=== PATIENT | female | born 1970 | race Caucasian/White ===

== ENCOUNTER → 2016-07-03 | Outpatient (CLI) | payer BC, OTHER ==
--- NOTE | 2016-07-04 10:16 | MM ---
Reason for exam: screening (asymptomatic). Last mammogram was performed 1 year and 4 months ago. Physical Findings: A clinical breast exam by your physician is recommended on an annual basis and results should be correlated with mammographic findings. MG Screening Mammo w CAD Bilateral CC and MLO view(s) were taken. Prior study comparison: March 15, 2015, bilateral MG screening mammo w CAD. May 19, 2008, bilateral digital screening mammogram. There are scattered fibroglandular densities. Finding: There are typically benign calcifications. There is no discrete abnormality. No significant changes in finding since March 15, 2015 and May 19, 2008. ASSESSMENT: Benign, BI-RAD 2 RECOMMENDATION: Routine screening mammogram of both breasts in 1 year.
== END | disposition home or self-care (01) ==
LOC: RADMAMWWP 08:00
PROVIDERS: ATTEND Family Medicine
DX: Z12.31 Encounter for screening mammogram for malignant neoplasm of breast (principal)

== ENCOUNTER → 2016-09-19 | Outpatient (CLI) | payer BC, OTHER ==
--- NOTE | 2016-09-19 12:23 | CONS ---
DATE OF CONSULTATION: 09/19/2016 CONSULTATION/NEW PATIENT EVALUATION A 46-year-old lady has been evaluated in the sleep center for excessive daytime sleepiness. HISTORY OF PRESENT ILLNESS/SLEEP-WAKE EVALUATION: SLEEP SCHEDULE: Patient's usual sleep schedule on working days from around 2 a.m. until 10 a.m. and on weekends from around 11 to 12 midnight until 9 a.m. FALLING ASLEEP: No problem with falling asleep. 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 or at midnight. She has a TV set in bedroom. DURING SLEEP: Sleeps on the side position. According to her , she snores. Nobody did mention that she has episodes of stopped breathing during the sleep. She grinds her teeth and has positive symptoms of restless legs and sleeptalking. The patient has positive history of movements of her legs during the night, improved while she is on treatment with magnesium and Neurontin. DURING THE DAY/WAKE STATE: In the morning, she wakes up tired, falling asleep during the day. Newton Sleepiness Scale significantly increased to 12. PAST MEDICAL HISTORY: Positive for hypothyroidism, seasonal allergy, allergic to CATS, DUST, diabetes mellitus, hyperlipidemia, acid reflux, depression. PAST SURGICAL HISTORY: Tubal ligation. MEDICATIONS: Synthroid, Claritin, fenofibrate, Mobic, Neurontin, metformin, citalopram, simvastatin, ( ), magnesium supplement, calcium supplement with vitamin D3. SOCIAL HISTORY: Negative for smoking. Alcohol consumption occasional, rarely. REVIEW OF SYSTEMS: Excessive daytime sleepiness. Patient feels refreshed after naps. No vivid dreams during naps. No fevers. No double vision. No recent chest pain. No shortness of breath. No abdominal pain. No bleeding episodes. No blood in urine. No seizure episodes. FAMILY HISTORY: Hyperlipidemia, arthritis, cancer, diabetes, acid reflux, thyroid problems, restless legs. PHYSICAL EXAMINATION: GENERAL: A pleasant 46-year-old lady without distress. VITAL SIGNS: BP 150/85, HR 84, RR 16. Height 5 feet and 7 inches. Weight 299. BMI 46.8. Neck 16-1/2 inches in circumference. Temp is 98.3. Oxygen saturation at room air 97%. HEENT: PERRLA, EOMI. Oropharynx low position of soft palate. NECK: Supple. No JVD. Thyroid is not palpable. LUNGS: Clear to percussion and to auscultation. Good air exchange. No wheezing or rhonchi. HEART: S1, S2 regular. No murmurs, gallops or rubs. ABDOMEN: Obese. EXTREMITIES: No clubbing or cyanosis. [employer]: Awake, alert, and oriented x3. Cranial nerves 2 to 7 intact. There is no fasciculation or atrophy noted. No focal deficits observed. IMPRESSION: 1. Snoring, low position of soft palate, obesity, sleepiness, obstructive sleep apnea/hypopnea syndrome. 2. Positive history of leg movements during sleep, possible PLMS. 3. Newton Sleepiness Scale increased to 12. If sleep study will be negative for obstructive sleep apnea, differential diagnosis should include hypersomnia. 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 5. Hypertension in the office today. 6. Hypothyroidism. 7. Obesity, body mass index of 46.8. 8. Seasonal allergy. 9. Allergic to CATS and DUST. 10. Diabetes mellitus. 11. Hyperlipidemia. 12. Acid reflux. 13. Status post tubal radiation. PLAN: 1. Polysomnography for evaluation of patient's breathing during sleep. 2. CPAP/BiPAP titration if sleep study confirms obstructive sleep apnea-hypopnea syndrome. 3. Preferable position during sleep on the side. 4. No driving if patient feels any sleepiness. Patient is aware of civil and criminal liability for unsafe driving. 5. I will see patient for follow-up visit to explain results of the testing and following plan. 6. If sleep study revealed negative for obstructive sleep apnea, we will proceed with multiple sleep latency test. Sincerely, Nathaniel Novak MD, PhD, FAASM. Diplomat of [place] [employer], Sleep Medicine Board by [place] [employer] [place] [employer] Animal Facility Supervisor of [facility] [place]
== END ==
LOC: SLEEP 11:18
PROVIDERS: ATTEND Internal Medicine
DX: G47.33 Obstructive sleep apnea (adult) (pediatric) (principal); I10 Essential (primary) hypertension; E03.9 Hypothyroidism, unspecified; E66.9 Obesity, unspecified; J30.2 Other seasonal allergic rhinitis; E11.9 Type 2 diabetes mellitus without complications; K21.9 Gastro-esophageal reflux disease without esophagitis; Z79.1 Long term (current) use of non-steroidal anti-inflammatories (NSAID); Z79.899 Other long term (current) drug therapy; Z68.42 Body mass index [BMI] 45.0-49.9, adult
CPT/HCPCS: 99211

== ENCOUNTER → 2017-01-29 | Outpatient (CLI) | payer BC, OTHER ==
--- NOTE | 2017-01-29 15:29 | XR ---
EXAMINATION TYPE: XR knee complete RT DATE OF EXAM: 01/29/2017 CLINICAL HISTORY: Right-sided knee pain TECHNIQUE: Three views of the right knee are obtained. COMPARISON: None. FINDINGS: There is no acute fracture/dislocation evident in right knee. Incidental fabella is noted. Marginal osteophytes project from the bilateral femoral condyles and superior patellar pole. There i s medial joint space narrowing, mild in degree with tibial plateaus sclerosis. The overlying soft tis nelly appears unremarkable. Small suprapatellar joint effusion is seen. IMPRESSION: There is no acute fracture or dislocation in the right knee.
== END | disposition home or self-care (01) ==
LOC: RADXRMAIN 15:05
PROVIDERS: ATTEND Family Medicine
DX: M25.561 Pain in right knee (principal)

== ENCOUNTER 2018-04-01 07:20 | Day surgery (SDC) | payer BC ==
[2018-03-30 15:59] VITALS: BMI 45.9
--- NOTE | 2018-03-31 22:39 | P.GSHP ---
History of Present Illness H&P Date: 04/01/18 CHIEF COMPLAINT: Colon screen HISTORY OF PRESENT ILLNESS: The patient is a 47-year-old female who presents for colon screen. Lower endoscopy was offered for further evaluation and management. PAST MEDICAL HISTORY: Please see list. PAST SURGICAL HISTORY: Please see list. MEDICATIONS: Please see list. ALLERGIES: Please see list. SOCIAL HISTORY: No illicit drug use FAMILY HISTORY: No reports of Crohn disease or ulcerative colitis. REVIEW OF ORGAN SYSTEMS: CONSTITUTIONAL: No reports of fevers or chills. PHYSICAL EXAM: VITAL SIGNS: Stable GENERAL: Well-developed pleasant in no acute distress. HEENT: No scleral icterus. Extraocular movements grossly intact. Moist buccal mucosa. NECK: Supple without lymphadenopathy. CHEST: Unlabored respirations. Equal bilateral excursions. CARDIOVASCULAR: Regular rate and rhythm. Distal 2+ pulses. ABDOMEN: Soft, nontender, nondistended. MUSCULOSKELETAL: No clubbing, cyanosis, or edema. ASSESSMENT: 1. Colon screen. PLAN: 1. Recommend proceeding with a lower endoscopy Past Medical History Past Medical History: Diabetes Mellitus, GERD/Reflux, Hyperlipidemia, Hypertension, Thyroid Disorder Additional Past Medical History / Comment(s): FREQUENT CONSTIPATION, RESTLESS LEG, SEASONAL ALLERGIES, History of Any Multi-Drug Resistant Organisms: None Reported Past Surgical History: Tubal Ligation Past Anesthesia/Blood Transfusion Reactions: No Reported Reaction Smoking Status: Never smoker - Past Family History Mother Family Medical History: No Reported History Medications and Allergies Home Medications Medication Instructions Recorded Confirmed Type Calcium Carbonate/Vitamin D3 1 each PO DAILY 02/13/16 03/30/18 History [Calcium 600-Vit D3 200 Tablet] Gabapentin [Neurontin] 600 mg PO TID 02/13/16 03/30/18 History Levothyroxine Sodium [Synthroid] 25 mcg PO DAILY 02/13/16 03/30/18 History Multivitamins, Thera [Multivitamin] 1 tab PO DAILY 02/13/16 03/30/18 History Simvastatin [Zocor] 40 mg PO HS 02/13/16 03/30/18 History metFORMIN HCL 1,000 mg PO DAILY 02/13/16 03/30/18 History Citalopram Hydrobromide 10 mg PO DAILY 03/30/18 03/30/18 History [Citalopram HBr] Fenofibrate 160 mg PO DAILY 03/30/18 03/30/18 History L.acidoph,Paracasei, B.lactis 1 each PO DAILY 03/30/18 03/30/18 History [Probiotic] Loratadine 10 mg PO DAILY 03/30/18 03/30/18 History Losartan [Cozaar] 50 mg PO DAILY 03/30/18 03/30/18 History Magnesium Oxide [Mag-Ox] 400 mg PO DAILY 03/30/18 03/30/18 History Meloxicam 15 mg PO DAILY 03/30/18 03/30/18 History Ranitidine HCl [Zantac] 150 mg PO DAILY 03/30/18 03/30/18 History Allergies Allergy/AdvReac Type Severity Reaction Status Date / Time codeine AdvReac Nausea Verified 03/30/18 15:52 hydrocodone bitartrate AdvReac Nausea Verified 03/30/18 15:52 [From Vicodin] lisinopril AdvReac Cough Verified 03/30/18 15:52 tramadol HCl [From Ultram] AdvReac Nausea Verified 03/30/18 15:52
[~2018-04-01 07:20] MED LIST: LACTATED RINGERS 1,000 ML IV SCH
[2018-04-01] MEDS ORDERED: LACTATED RINGERS 1,000 ML IV ONE (07:37)
[2018-04-01 07:53] VITALS: TEMP 98.3
[2018-04-01 07:57] LABS: Glucose,Whole Blood 111 mg/dL (75-99)
[2018-04-01] MEDS ORDERED: LIDOCAINE 1% INJ 10MG/ML (20 ML MDV) ONE (08:02)
[2018-04-01] MEDS ORDERED: PROPOFOL 10 MG/ML 20 ML VIAL IV ONE (08:02)
--- NOTE | 2018-04-01 08:26 | P.PCN ---
Date of Procedure: 04/01/18 Description of Procedure: PREOPERATIVE DIAGNOSIS: Colonoscopy screening Chronic constipation POSTOPERATIVE DIAGNOSIS: Colonoscopy screeningred. OPERATION: Colonoscopy to the ileocecal valve and appendiceal orifice. SURGEON: Cortney Vieira MD. ANESTHESIA: MAC. INDICATIONS: The patient is a 47-year-old female who presents for colonoscopy screening and also reports chronic constipation. Benefits and risks were described and informed consent was obtained. DESCRIPTION OF PROCEDURE: The patient had undergone Gatorade, MiraLAX and Dulcolax prep. She had been brought into the operating room and laid in the left lateral decubitus position. After adequate intravenous sedation, the rectum was examined with 2% lidocaine jelly. No external hemorrhoids were encountered. The rectal tone was within normal limits. No lesions were palpated in the rectal vault. An Olympus colonoscope was advanced until the ileocecal valve and appendiceal orifice were clearly viewed. The prep was good with visualization of the mucosal folds. The scope was removed with visualization of each mucosal fold. No scattered diverticulosis was encountered. No colonic polyps were found. No evidence of focal colitis was found. A highly redundant sigmoid colon was identified requiring abdominal wall pressure. Retroflexion of the scope demonstrated no internal hemorrhoids without active bleeding or inflammation. The colon was desufflated. The patient had tolerated the procedure well. Withdrawal time was over 6 minutes. FINDINGS: No internal hemorrhoids, grade 1 No external prolapsed hemorrhoids. No arteriovenous malformations. No adenomatous polyps. No focal colitis. No sigmoid diverticulosis A highly redundant sigmoid colon was identified requiring abdominal wall pressure. RECOMMENDATIONS: Lower endoscopy in 10 years per screening guidelines, 2027 Plan - Discharge Summary New Discharge Prescriptions: No Action Multivitamins, Thera [Multivitamin] 1 tab PO DAILY Gabapentin [Neurontin] 600 mg PO TID Calcium Carbonate/Vitamin D3 [Calcium 600-Vit D3 200 Tablet] 1 each PO DAILY metFORMIN HCL 1,000 mg PO DAILY Simvastatin [Zocor] 40 mg PO HS Levothyroxine Sodium [Synthroid] 25 mcg PO DAILY Magnesium Oxide [Mag-Ox] 400 mg PO DAILY Losartan [Cozaar] 50 mg PO DAILY Fenofibrate 160 mg PO DAILY Ranitidine HCl [Zantac] 150 mg PO DAILY Meloxicam 15 mg PO DAILY Loratadine 10 mg PO DAILY L.acidoph,Paracasei, B.lactis [Probiotic] 1 each PO DAILY Citalopram Hydrobromide [Citalopram HBr] 10 mg PO DAILY Discharge Medication List Calcium Carbonate/Vitamin D3 [Calcium 600-Vit D3 200 Tablet] 1 each PO DAILY [History] Gabapentin [Neurontin] 600 mg PO TID 02/13/16 [History] Levothyroxine Sodium [Synthroid] 25 mcg PO DAILY 02/13/16 [History] Multivitamins, Thera [Multivitamin] 1 tab PO DAILY 02/13/16 [History] Simvastatin [Zocor] 40 mg PO HS 02/13/16 [History] metFORMIN HCL 1,000 mg PO DAILY 02/13/16 [History] Citalopram Hydrobromide [Citalopram HBr] 10 mg PO DAILY 03/30/18 [History] Fenofibrate 160 mg PO DAILY 03/30/18 [History] L.acidoph,Paracasei, B.lactis [Probiotic] 1 each PO DAILY 03/30/18 [History] Loratadine 10 mg PO DAILY 03/30/18 [History] Losartan [Cozaar] 50 mg PO DAILY 03/30/18 [History] Magnesium Oxide [Mag-Ox] 400 mg PO DAILY 03/30/18 [History] Meloxicam 15 mg PO DAILY 03/30/18 [History] Ranitidine HCl [Zantac] 150 mg PO DAILY 03/30/18 [History]
[2018-04-01 08:32] VITALS: RESP 16
[2018-04-01 08:47] VITALS: BP 119/78; PULSE 72
== END 2018-04-01 09:10 | disposition home or self-care (01) ==
LOC: ORWHC2ENDO 07:20
PROVIDERS: ATTEND Surgery Plastic and Reconstructive Surgery
DX: K59.09 Other constipation (principal); Q43.8 Other specified congenital malformations of intestine; E11.9 Type 2 diabetes mellitus without complications; K21.9 Gastro-esophageal reflux disease without esophagitis; E78.5 Hyperlipidemia, unspecified; I10 Essential (primary) hypertension; E07.9 Disorder of thyroid, unspecified; G25.81 Restless legs syndrome; J30.2 Other seasonal allergic rhinitis; Z79.84 Long term (current) use of oral hypoglycemic drugs; Z79.890 Hormone replacement therapy; Z79.1 Long term (current) use of non-steroidal anti-inflammatories (NSAID); Z79.899 Other long term (current) drug therapy; Z88.5 Allergy status to narcotic agent; Z88.8 Allergy status to other drugs, medicaments and biological substances; Z98.51 Tubal ligation status
CPT/HCPCS: 81025; 45378; J2001; J2704

== ENCOUNTER → 2018-11-13 | Outpatient (CLI) | payer BC ==
--- NOTE | 2018-11-13 14:51 | XR ---
Right foot HISTORY: Right foot pain 3 views the right foot Bone mineralization, joint spaces and alignment are maintained. No fracture or dislocation. There is a plantar calcaneus spur. There is ossific density present at the level of the Achilles tendon near t he insertion. Achilles tendon is thickened. Some spurring present at the tibiotalar joint. IMPRESSION: There may be calcific tendinitis. Difficult to exclude partial tear of the Achilles tendo n, consider MRI of the ankle as indicated.
== END | disposition home or self-care (01) ==
LOC: RADXRMAIN 12:35
PROVIDERS: ATTEND Family Medicine
DX: M79.671 Pain in right foot (principal)

== ENCOUNTER → 2019-04-30 | Outpatient (CLI) | payer BC ==
--- NOTE | 2019-05-03 08:35 | MM ---
Reason for exam: screening (asymptomatic). Last mammogram was performed 2 years and 10 months ago. History: Family history of breast cancer in paternal aunt at age 67. Physical Findings: A clinical breast exam by your physician is recommended on an annual basis and results should be correlated with mammographic findings. MG Screening Mammo w CAD Bilateral CC and MLO view(s) were taken. Prior study comparison: July 03, 2016, bilateral MG screening mammo w CAD. March 15, 2015, bilateral MG screening mammo w CAD. There are scattered fibroglandular densities. Benign appearing bilateral calcifications. No suspicious abnormality. No significant changes when compared with prior studies. ASSESSMENT: Benign, BI-RAD 2 RECOMMENDATION: Routine screening mammogram of both breasts in 1 year.
== END | disposition home or self-care (01) ==
LOC: RADMAMWWP 10:20
PROVIDERS: ATTEND Family Medicine
DX: Z12.31 Encounter for screening mammogram for malignant neoplasm of breast (principal)
CPT/HCPCS: 77067

== ENCOUNTER → 2021-01-23 | Outpatient (CLI) | payer BC ==
--- NOTE | 2021-01-23 15:27 | US ---
EXAMINATION TYPE: US pelvic complete DATE OF EXAM: 01/23/2021 COMPARISON: NONE CLINICAL HISTORY: N92.1 Excessive Frequent Menstration. Irregular heavy periods x couple months, gr avida 2, para 2, history of tubal ligation. TECHNIQUE: . Transabdominal sonographic images of the pelvis were acquired. Date of LMP: 01/15/2021 EXAM MEASUREMENTS: Uterus: 9.5 x 4.1 x 4.5 cm Endometrial Stripe: 0.8 cm Right Ovary: 2.7 x 1.4 x 2.3 cm Left Ovary: 2.3 x 1.6 x 2.2 cm 1. Uterus: anteverted, heterogeneous 2. Endometrium: wnl 3. Right Ovary: wnl 4. Left Ovary: wnl 5. Bilateral Adnexa: wnl 6. Posterior cul-de-sac: wnl IMPRESSION: No significant abnormality appreciated.
== END | disposition home or self-care (01) ==
LOC: RADUSWWP 14:55
PROVIDERS: ATTEND Family Medicine
DX: N92.1 Excessive and frequent menstruation with irregular cycle (principal)
CPT/HCPCS: 76856

== ENCOUNTER → 2021-01-30 | Outpatient (CLI) | payer BC ==
--- NOTE | 2021-02-16 09:27 | P.CEMON ---
This is a report on the 14 day event monitor. Baseline rhythm is sinus with sinus tachycardia. The heart rate is variable between 94-130. Patient remained in a sinus tachycardia without any arrhythmias. No APCs, PVCs, SVT or V. tach noted. Patient complained of of heart racing on medication and also nausea vomiting and chest pain on few occasions. There is inconsistent correlation between symptoms and that heart rhythm. No bradyarrhythmias noted. Final impression: #1. Sinus rhythm to sinus tachycardia #2. No supraventricular or ventricular arrhythmias. #3. No bradyarrhythmias. #4. Patient complained of fast heartbeat, nausea, vomiting, chest pain, with inconsistent correlation with heart rates.
== END | disposition home or self-care (01) ==
LOC: RADECHMAIN 11:57
PROVIDERS: ATTEND Family Medicine
DX: R00.0 Tachycardia, unspecified (principal)
CPT/HCPCS: 93270

== ENCOUNTER → 2021-02-27 | Outpatient (CLI) | payer BC ==
--- NOTE | 2021-02-28 11:58 | MM ---
Reason for exam: screening (asymptomatic). Last mammogram was performed 1 year and 10 months ago. History: Family history of breast cancer in paternal aunt at age 67. Physical Findings: A clinical breast exam by your physician is recommended on an annual basis and results should be correlated with mammographic findings. MG Screening Mammo w CAD Bilateral CC, MLO, and CV view(s) were taken. Prior study comparison: April 30, 2019, bilateral MG screening mammo w CAD. July 03, 2016, bilateral MG screening mammo w CAD. The breast tissue is almost entirely fat. Stable benign calcifications. No significant changes when compared with prior studies. ASSESSMENT: Benign, BI-RAD 2 RECOMMENDATION: Routine screening mammogram of both breasts in 1 year.
== END | disposition home or self-care (01) ==
LOC: RADMAMWWP 10:50
PROVIDERS: ATTEND Family Medicine
DX: Z12.31 Encounter for screening mammogram for malignant neoplasm of breast (principal)
CPT/HCPCS: 77067

== ENCOUNTER 2021-07-08 00:11 | Emergency (ER) | payer OTHER, BC ==
[2021-07-08 00:56] VITALS: BP 113/71; PULSE 96; RESP 18; TEMP 97.4
[2021-07-08] MEDS ORDERED: KETOROLAC 15 MG/ML 1 ML VIAL IM STA (01:22)
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
== END 2021-07-08 02:54 | disposition home or self-care (01) ==
LOC: EC 00:11
DX: M54.59 Other low back pain (principal); I10 Essential (primary) hypertension; E11.9 Type 2 diabetes mellitus without complications; K21.9 Gastro-esophageal reflux disease without esophagitis; Z88.5 Allergy status to narcotic agent; Z79.83 Long term (current) use of bisphosphonates; Z79.82 Long term (current) use of aspirin; V99.XXXA Unspecified transport accident, initial encounter; Z88.8 Allergy status to other drugs, medicaments and biological substances; Z88.6 Allergy status to analgesic agent
CPT/HCPCS: 72100; 99284; 96372; J1885

== ENCOUNTER 2021-12-22 09:15 | Emergency (ER) | payer BC, OTHER ==
[2021-12-22 09:34] VITALS: BP 117/63; PULSE 96; RESP 16; TEMP 98.5
[2021-12-22] MEDS ORDERED: LIDOCAINE 1%-EPI 1:100,000 20 ML VIAL SQ STA (09:59)
--- NOTE | 2021-12-22 10:04 | ED ---
General Adult HPI - General Chief complaint: Skin/Abscess/Foreign Body Stated complaint: Sore/Femle Time Seen by Provider: 12/22/21 09:44 Source: patient, RN notes reviewed Mode of arrival: ambulatory Limitations: no limitations - History of Present Illness Initial comments: 51-year-old female with a past medical history of hyperlipidemia, hypertension, diabetes mellitus, GERD presents to the emergency room for abscess. Patient reports for the past couple days she has had a left buttock abscess. States that she gets these relatively frequently and her doctor gives her antibiotics. They usually spontaneously drained however this one is not. States it is painful to touch. Patient denies fevers or chills.Patient has no other complaints at this time including shortness of breath, chest pain, abdominal pain, nausea or vomiting, headache, or visual changes. - Related Data Home Medications Medication Instructions Recorded Confirmed Calcium Carbonate/Vitamin D3 1 each PO DAILY 02/13/16 04/01/18 [Calcium 600-Vit D3 200 Tablet] Gabapentin [Neurontin] 600 mg PO TID 02/13/16 04/01/18 Levothyroxine Sodium [Synthroid] 25 mcg PO DAILY 02/13/16 04/01/18 Multivitamins, Thera [Multivitamin] 1 tab PO DAILY 02/13/16 03/30/18 Simvastatin [Zocor] 40 mg PO HS 02/13/16 04/01/18 metFORMIN HCL [Glucophage] 1,000 mg PO DAILY 02/13/16 04/01/18 Citalopram Hydrobromide 10 mg PO DAILY 03/30/18 04/01/18 [Citalopram HBr] Fenofibrate 160 mg PO DAILY 03/30/18 04/01/18 L.acidoph,Paracasei, B.lactis 1 each PO DAILY 03/30/18 04/01/18 [Probiotic] Loratadine 10 mg PO DAILY 03/30/18 04/01/18 Losartan [Cozaar] 50 mg PO DAILY 03/30/18 04/01/18 Magnesium Oxide [Mag-Ox] 400 mg PO DAILY 03/30/18 04/01/18 Meloxicam 15 mg PO DAILY 03/30/18 04/01/18 Ranitidine HCl [Zantac] 150 mg PO DAILY 03/30/18 04/01/18 Previous Rx's Medication Instructions Recorded Cyclobenzaprine HCl 10 mg PO TID 7 Days #21 tab 07/08/21 predniSONE 50 mg PO DAILY #5 tab 07/08/21 Sulfamethox-Tmp 800-160Mg [Bactrim 2 tab PO Q12HR #40 tab 12/22/21 DS 800-160 mg] Allergies Allergy/AdvReac Type Severity Reaction Status Date / Time codeine AdvReac Nausea Verified 12/22/21 09:34 hydrocodone bitartrate AdvReac Nausea Verified 12/22/21 09:34 [From Vicodin] lisinopril AdvReac Cough Verified 12/22/21 09:34 tramadol HCl [From Ultram] AdvReac Nausea Verified 12/22/21 09:34 Review of Systems ROS Statement: Those systems with pertinent positive or pertinent negative responses have been documented in the HPI. ROS Other: All systems not noted in ROS Statement are negative. Past Medical History Past Medical History: Diabetes Mellitus, GERD/Reflux, Hyperlipidemia, Hypertension, Thyroid Disorder Additional Past Medical History / Comment(s): FREQUENT CONSTIPATION, RESTLESS LEG, SEASONAL ALLERGIES, History of Any Multi-Drug Resistant Organisms: MRSA Past Surgical History: Tubal Ligation Past Anesthesia/Blood Transfusion Reactions: No Reported Reaction Past Psychological History: Depression Smoking Status: Former smoker Past Alcohol Use History: Rare Past Drug Use History: None Reported - Past Family History Mother Family Medical History: No Reported History General Exam Limitations: no limitations General appearance: alert, in no apparent distress Head exam: Present: atraumatic Eye exam: Present: normal appearance, PERRL, EOMI. Absent: scleral icterus, conjunctival injection ENT exam: Present: normal exam, mucous membranes moist Neck exam: Present: normal inspection, full ROM. Absent: tenderness Respiratory exam: Present: normal lung sounds bilaterally. Absent: respiratory distress, wheezes Cardiovascular Exam: Present: regular rate, normal rhythm, normal heart sounds GI/Abdominal exam: Present: soft, normal bowel sounds. Absent: distended, tenderness Extremities exam: Present: other (2 cm x 2 cm area of induration noted in the left mid to low central buttock area. no erythema or edema in the perineum) Course Vital Signs 12/22/21 09:31 Temperature 98.5 F Pulse Rate 96 Respiratory 16 Rate Blood Pressure 117/63 O2 Sat by Pulse 97 Oximetry Procedures - Incision & Drainage Consent Obtained: verbal consent Indication: abscess Site: buttock Size (cm): 2 Anesthetic Used: lidocaine 1%, with epi Amount (mLs): 2 I&D Cleaning Method: Alcohol Wipe Sterile Field Used?: Yes Scalpel Used: #11 I&D Drainage Obtained: Blood Patient Tolerated Procedure: well, no complications Medical Decision Making - Medical Decision Making Incision and drainage performed 2 abscess of the left buttock. There is no evidence of extending cellulitis or abscess in the perineum. Abscess is small and localized to the central left buttock. Incision and drainage was performed however no purulent material expelled as this is a rather indurated area. Patient started on Bactrim. She usually gets 2 tabs of 800 twice daily for 10 days from her doctor which we will prescribe. She will follow-up with her doctor. She will return here for any worsening symptoms Disposition Clinical Impression: Abscess Disposition: HOME SELF-CARE Condition: Good Instructions (If sedation given, give patient instructions): Abscess (ED), Abscess Incision and Drainage (ED) Additional Instructions: Please follow-up with your doctor. Take antibiotic as directed and do warm soaks. Return to the emergency room for any worsening symptoms. Prescriptions: Sulfamethox-Tmp 800-160Mg [Bactrim DS 800-160 mg] 2 tab PO Q12HR #40 tab Is patient prescribed a controlled substance at d/c from ED?: No Referrals: Woody Barbour DO [Primary Care Provider] - 1-2 days Time of Disposition: 10:50
== END 2021-12-22 11:00 | disposition home or self-care (01) ==
LOC: EC 09:15
DX: L02.31 Cutaneous abscess of buttock (principal); E11.9 Type 2 diabetes mellitus without complications; I10 Essential (primary) hypertension; E78.5 Hyperlipidemia, unspecified; K21.9 Gastro-esophageal reflux disease without esophagitis; E07.9 Disorder of thyroid, unspecified; F32.A Depression, unspecified; Z87.891 Personal history of nicotine dependence; Z79.84 Long term (current) use of oral hypoglycemic drugs; Z79.890 Hormone replacement therapy; Z79.899 Other long term (current) drug therapy
CPT/HCPCS: 10060; 99283

== ENCOUNTER 2022-02-03 06:13 | Emergency (ER) | payer BC, OTHER ==
[2022-02-03 06:18] VITALS: TEMP 98.4
[2022-02-03] MEDS ORDERED: LIDOCAINE/EPINEPHR/TETRACAINE 5 ML BOTTLE TOPICAL ONE (06:26)
[2022-02-03] MEDS ORDERED: LIDOCAINE 1% INJ 10MG/ML (5 ML VIAL-PF) SQ ONE (06:27)
--- NOTE | 2022-02-03 06:35 | ED ---
Skin/Abscess/FB HPI - General Chief complaint: Skin/Abscess/Foreign Body Stated complaint: MRSA Time Seen by Provider: 02/03/22 06:20 Source: patient, RN notes reviewed, old records reviewed Mode of arrival: ambulatory Limitations: no limitations - History of Present Illness Initial comments: Well-appearing 51-year-old female presents ambulatory with complaints of abscess to her right axilla and a small abscess to her left lateral lower leg since . Patient states that the right axilla is draining however she knows she needs Bactrim with her history of MRSA. She states that she has had multiple abscesses in the past and treated with Bactrim with resolution. She denies any fevers, no nausea, vomiting or diarrhea. She does have a history of diabetes, GERD, hypertension and restless leg syndrome. MD complaint: abscess/boil -: days(s) (4) Tetanus Up to Date: yes Location: RUE (axilla), LLE Severity scale (1-10): 0 Associated symptoms: denies other symptoms Treatments Prior to Arrival: bandages - Related Data Home Medications Medication Instructions Recorded Confirmed Calcium Carbonate/Vitamin D3 1 each PO DAILY 02/13/16 04/01/18 [Calcium 600-Vit D3 200 Tablet] Gabapentin [Neurontin] 600 mg PO TID 02/13/16 04/01/18 Levothyroxine Sodium [Synthroid] 25 mcg PO DAILY 02/13/16 04/01/18 Multivitamins, Thera [Multivitamin] 1 tab PO DAILY 02/13/16 03/30/18 Simvastatin [Zocor] 40 mg PO HS 02/13/16 04/01/18 metFORMIN HCL [Glucophage] 1,000 mg PO DAILY 02/13/16 04/01/18 Citalopram Hydrobromide 10 mg PO DAILY 03/30/18 04/01/18 [Citalopram HBr] Fenofibrate 160 mg PO DAILY 03/30/18 04/01/18 L.acidoph,Paracasei, B.lactis 1 each PO DAILY 03/30/18 04/01/18 [Probiotic] Loratadine 10 mg PO DAILY 03/30/18 04/01/18 Losartan [Cozaar] 50 mg PO DAILY 03/30/18 04/01/18 Magnesium Oxide [Mag-Ox] 400 mg PO DAILY 03/30/18 04/01/18 Meloxicam 15 mg PO DAILY 03/30/18 04/01/18 Ranitidine HCl [Zantac] 150 mg PO DAILY 03/30/18 04/01/18 Previous Rx's Medication Instructions Recorded Cyclobenzaprine HCl 10 mg PO TID 7 Days #21 tab 07/08/21 predniSONE 50 mg PO DAILY #5 tab 07/08/21 Cephalexin [Keflex] 500 mg PO Q6HR 5 Days #20 cap 02/03/22 Sulfamethox-Tmp 800-160Mg [Bactrim 2 tab PO Q12HR #40 tab 02/03/22 DS 800-160 mg] Allergies Allergy/AdvReac Type Severity Reaction Status Date / Time codeine AdvReac Nausea Verified 02/03/22 06:14 hydrocodone bitartrate AdvReac Nausea Verified 02/03/22 06:14 [From Vicodin] lisinopril AdvReac Cough Verified 02/03/22 06:14 tramadol HCl [From Ultram] AdvReac Nausea Verified 02/03/22 06:14 Review of Systems ROS Statement: Those systems with pertinent positive or pertinent negative responses have been documented in the HPI. ROS Other: All systems not noted in ROS Statement are negative. Past Medical History Past Medical History: Diabetes Mellitus, GERD/Reflux, Hyperlipidemia, Hypertension, Thyroid Disorder Additional Past Medical History / Comment(s): FREQUENT CONSTIPATION, RESTLESS LEG, SEASONAL ALLERGIES, History of Any Multi-Drug Resistant Organisms: MRSA Past Surgical History: Tubal Ligation Past Anesthesia/Blood Transfusion Reactions: No Reported Reaction Past Psychological History: Depression Smoking Status: Former smoker Past Alcohol Use History: Rare Past Drug Use History: None Reported - Past Family History Mother Family Medical History: No Reported History General Exam Limitations: no limitations General appearance: alert, in no apparent distress Head exam: Present: atraumatic Respiratory exam: Absent: respiratory distress, accessory muscle use Cardiovascular Exam: Present: regular rate GI/Abdominal exam: Present: soft Extremities exam: Present: normal capillary refill. Absent: pedal edema Right Upper Arm exam: Present: full ROM, tenderness, swelling, erythema, other (Right axillary abscess approximately 2 cm x 5 cm draining clear fluid) Elbow exam: Present: full ROM. Absent: tenderness Forearm Wrist exam: Present: full ROM. Absent: tenderness Vascular: Present: normal capillary refill. Absent: vascular compromise Left Lower Leg exam: Present: erythema (1 cm circular area of erythema no fluctuance). Absent: tenderness Neurovascular tendon exam: Present: no vascular compromise. Absent: extremity cold to touch Neurological exam: Present: alert, oriented X3, normal gait Psychiatric exam: Present: normal affect, normal mood Skin exam: Present: warm, dry. Absent: cyanosis, diaphoretic, petechiae, pallor Course Vital Signs 02/03/22 06:14 Temperature 98.4 F Pulse Rate 88 Respiratory 16 Rate Blood Pressure 114/71 O2 Sat by Pulse 96 Oximetry Procedures - Incision & Drainage Consent Obtained: verbal consent Site: upper extremity (right axilla) Anesthetic Used: lidocaine 1% I&D Cleaning Method: Alcohol Wipe Scalpel Used: #11 I&D Drainage Obtained: Pus, Blood Culture Obtained?: Yes Patient Tolerated Procedure: well Medical Decision Making - Medical Decision Making Patient presents with a right axillary abscess for 3 days. Incision and drainage was performed after, pain and 1% lidocaine for anesthesia. Culture was sent. Case discussed with Dr. Moscoso. Patient placed on Bactrim and Keflex. Instructed to follow-up with her primary care doctor next week. Return to the emergency room with any new or concerning symptoms. Patient is agreeable to this plan of care. Disposition Clinical Impression: Axillary abscess Disposition: HOME SELF-CARE Condition: Good Instructions (If sedation given, give patient instructions): Abscess (ED) Additional Instructions: Take antibiotics as prescribed. Follow-up with your primary care doctor next week. Return to the emergency room with any new or concerning symptoms including increased swelling, pain or fevers. Prescriptions: Sulfamethox-Tmp 800-160Mg [Bactrim DS 800-160 mg] 2 tab PO Q12HR #40 tab Cephalexin [Keflex] 500 mg PO Q6HR 5 Days #20 cap Is patient prescribed a controlled substance at d/c from ED?: No Referrals: Woody Barbour DO [Primary Care Provider] - 1-2 days Broderick Falcon MD [STAFF PHYSICIAN] - 1-2 days Time of Disposition: 07:02
[2022-02-03] MEDS ORDERED: LIDOCAINE-PRILOCAINE 2.5-2.5% CREAM 5 GM TUBE TOPICAL STA (06:40)
[2022-02-03 07:16] VITALS: BP 128/71; PULSE 87; RESP 18
== END 2022-02-03 07:16 | disposition home or self-care (01) ==
LOC: EC 06:13
DX: L02.411 Cutaneous abscess of right axilla (principal); E11.9 Type 2 diabetes mellitus without complications; K21.9 Gastro-esophageal reflux disease without esophagitis; E78.5 Hyperlipidemia, unspecified; Z87.891 Personal history of nicotine dependence; Z88.6 Allergy status to analgesic agent; Z88.8 Allergy status to other drugs, medicaments and biological substances
CPT/HCPCS: 87070; 87205; 10060; 99283; J2001

== ENCOUNTER → 2022-04-16 | Outpatient (CLI) | payer BC, OTHER ==
--- NOTE | 2022-04-17 08:42 | MM ---
Reason for Exam: Screening (asymptomatic). Last mammogram was performed 1 year(s) and 2 month(s) ago. Patient History: Menarche at age 11. First Full-Term at age 21. Paternal aunt had breast cancer, age 67. Last menstrual period: 04/08/2022 Risk Values: Marisol 5 year model risk: 1.0%. NCI Lifetime model risk: 8.7%. Prior Study Comparison: 07/03/2016 Bilateral Screening Mammogram, [facility]. 04/30/2019 Bilateral Screening Mammogram, [facility]. 02/27/2021 Bilateral Screening Mammogram, [facility]. Tissue Density: There are scattered fibroglandular densities. Findings: Analyzed By CAD. There is no suspicious group of microcalcifications or new suspicious mass in either breast. Benign calcifications within both breasts. No significant change from prior exams. Overall Assessment: Benign, BI-RAD 2 Management: Screening Mammogram of both breasts in 1 year. A clinical breast exam by your physician is recommended on an annual basis and results should be correlated with mammographic findings. Electronically signed and approved by: Homer Urena D.O.
--- NOTE | 2022-04-17 08:42 | MM ---
Reason for Exam: Screening (asymptomatic). Last mammogram was performed 1 year(s) and 2 month(s) ago. Patient History: Menarche at age 11. First Full-Term at age 21. Paternal aunt had breast cancer, age 67. Last menstrual period: 04/08/2022 Risk Values: Marisol 5 year model risk: 1.0%. NCI Lifetime model risk: 8.7%. Prior Study Comparison: 07/03/2016 Bilateral Screening Mammogram, [facility]. 04/30/2019 Bilateral Screening Mammogram, [facility]. 02/27/2021 Bilateral Screening Mammogram, [facility]. Tissue Density: There are scattered fibroglandular densities. Findings: Analyzed By CAD. There is no suspicious group of microcalcifications or new suspicious mass in either breast. Benign calcifications within both breasts. No significant change from prior exams. Overall Assessment: Benign, BI-RAD 2 Management: Screening Mammogram of both breasts in 1 year. A clinical breast exam by your physician is recommended on an annual basis and results should be correlated with mammographic findings. Electronically signed and approved by: Homer Urena D.O.
== END | disposition home or self-care (01) ==
LOC: RADMAMWWP 07:33
PROVIDERS: ATTEND Family Medicine
DX: Z12.31 Encounter for screening mammogram for malignant neoplasm of breast (principal)
CPT/HCPCS: 77063; 77067

== ENCOUNTER 2022-05-09 15:11 | Emergency (ER) | payer BC, OTHER ==
--- NOTE | 2022-05-09 17:43 | XR ---
EXAMINATION: XR chest 2V: 05/09/2022 5:38 PM CLINICAL INDICATION: Cough TECHNIQUE: Departmental protocol COMPARISON: None FINDINGS: The overlying soft tissues are prominent. Notwithstanding, the lungs appear to be clear bilaterally. The pleural spaces are negative. The cardiac silhouette is not enlarged. The remainder of the mediastinal silhouette is unremarkable. The skeletal structures and soft tissues are negative for acute findings. IMPRESSION: No acute process.
[2022-05-09] MEDS ORDERED: ACETAMINOPHEN TAB 500 MG TAB PO STA (18:09)
[2022-05-09] MEDS ORDERED: IBUPROFEN 600 MG TAB PO STA (18:09)
--- NOTE | 2022-05-09 18:18 | ED ---
URI HPI - General Chief Complaint: Upper Respiratory Infection Stated Complaint: BETSY, cough Time Seen by Provider: 05/09/22 16:07 Source: patient Mode of arrival: ambulatory Limitations: no limitations - History of Present Illness Initial Comments: Patient is a 51-year-old female presenting with chief complaint of cough and congestion for the last few days. Patient admits to chills. She denies chest pain, difficulty breathing, nausea, vomiting, abdominal pain, ear pain, sinus pain, sore throat, neck pain or stiffness, vision or hearing changes, pal pitations, weakness, diarrhea. - Related Data Home Medications Medication Instructions Recorded Confirmed Calcium Carbonate/Vitamin D3 1 each PO DAILY 02/13/16 04/01/18 [Calcium 600-Vit D3 200 Tablet] Gabapentin [Neurontin] 600 mg PO TID 02/13/16 04/01/18 Levothyroxine Sodium [Synthroid] 25 mcg PO DAILY 02/13/16 04/01/18 Multivitamins, Thera [Multivitamin] 1 tab PO DAILY 02/13/16 03/30/18 Simvastatin [Zocor] 40 mg PO HS 02/13/16 04/01/18 metFORMIN HCL [Glucophage] 1,000 mg PO DAILY 02/13/16 04/01/18 Citalopram Hydrobromide 10 mg PO DAILY 03/30/18 04/01/18 [Citalopram HBr] Fenofibrate 160 mg PO DAILY 03/30/18 04/01/18 L.acidoph,Paracasei, B.lactis 1 each PO DAILY 03/30/18 04/01/18 [Probiotic] Loratadine 10 mg PO DAILY 03/30/18 04/01/18 Losartan [Cozaar] 50 mg PO DAILY 03/30/18 04/01/18 Magnesium Oxide [Mag-Ox] 400 mg PO DAILY 03/30/18 04/01/18 Meloxicam 15 mg PO DAILY 03/30/18 04/01/18 Ranitidine HCl [Zantac] 150 mg PO DAILY 03/30/18 04/01/18 Previous Rx's Medication Instructions Recorded Cyclobenzaprine HCl 10 mg PO TID 7 Days #21 tab 07/08/21 predniSONE 50 mg PO DAILY #5 tab 07/08/21 Cephalexin [Keflex] 500 mg PO Q6HR 5 Days #20 cap 02/03/22 Sulfamethox-Tmp 800-160Mg [Bactrim 2 tab PO Q12HR #40 tab 02/03/22 DS 800-160 mg] Allergies Allergy/AdvReac Type Severity Reaction Status Date / Time codeine AdvReac Nausea Verified 05/09/22 15:42 hydrocodone bitartrate AdvReac Nausea Verified 05/09/22 15:42 [From Vicodin] lisinopril AdvReac Cough Verified 05/09/22 15:42 tramadol HCl [From Ultram] AdvReac Nausea Verified 05/09/22 15:42 Review of Systems ROS Statement: Those systems with pertinent positive or pertinent negative responses have been documented in the HPI. ROS Other: All systems not noted in ROS Statement are negative. Past Medical History Past Medical History: Diabetes Mellitus, GERD/Reflux, Hyperlipidemia, Hypertension, Thyroid Disorder Additional Past Medical History / Comment(s): FREQUENT CONSTIPATION, RESTLESS LEG, SEASONAL ALLERGIES, History of Any Multi-Drug Resistant Organisms: MRSA Date of last positivie culture/infection: 02/03/22 MDRO Source:: Right Axilla Past Surgical History: Tubal Ligation Past Anesthesia/Blood Transfusion Reactions: No Reported Reaction Past Psychological History: Depression Smoking Status: Former smoker Past Alcohol Use History: Rare Past Drug Use History: None Reported - Past Family History Mother Family Medical History: No Reported History General Exam Limitations: no limitations General appearance: alert, in no apparent distress Head exam: Present: atraumatic, normocephalic, normal inspection Eye exam: Present: normal appearance, PERRL, EOMI. Absent: scleral icterus, conjunctival injection, periorbital swelling ENT exam: Present: normal exam, normal oropharynx, mucous membranes moist, TM's normal bilaterally Neck exam: Present: normal inspection, full ROM. Absent: tenderness Respiratory exam: Present: normal lung sounds bilaterally. Absent: respiratory distress, wheezes, rales, rhonchi, stridor Cardiovascular Exam: Present: regular rate, normal rhythm, normal heart sounds. Absent: systolic murmur, diastolic murmur, rubs, gallop, clicks Neurological exam: Present: alert, oriented X3, CN II-XII intact Psychiatric exam: Present: normal affect, normal mood Skin exam: Present: warm, dry, intact, normal color. Absent: rash Course Vital Signs 05/09/22 05/09/2205/09/22 15:40 17:50 19:01 Temperature 99.6 F 100.0 F H Pulse Rate 112 H 96 Respiratory 22 20 20 Rate Blood Pressure 130/64 133/68 O2 Sat by Pulse 96 97 Oximetry Medical Decision Making - Medical Decision Making Patient is a 51-year-old female presenting with chief complaint of cough and congestion. Physical examination patient is febrile with temperature 102.1F, she is mildly tachycardic as well as a result of fever. Heart and lungs are clear to auscultation. Patient tested positive for influenza A, chest x-ray shows no acute process. Patient is educated on these results and supportive treatment. Follow-up with PCP. Report back to ER with any new or worsening symptoms. Discussed return parameters and answered all questions. Patient conveyed verbal understanding and agreed to the plan. I discussed this case in detail with my attending Dr. Moscoso - Lab Data Lab Results 05/09/22 05/09/22 Range/Units 15:40 15:40 Coronavirus (PCR) Not Detected (Not Detectd) Influenza Type A RNA Detected H (Not Detectd) Influenza Type B (PCR) Not Detected (Not Detectd) Disposition Clinical Impression: Influenza A Disposition: HOME SELF-CARE Condition: Good Instructions (If sedation given, give patient instructions): Influenza (ED) Additional Instructions: Follow-up with PCP. Report back to ER with any new or worsening symptoms. Take Motrin and Tylenol as needed for pain and fever control. Is patient prescribed a controlled substance at d/c from ED?: No Referrals: Woody Barbour DO [Primary Care Provider] - 1-2 days Time of Disposition: 18:18
[2022-05-09 19:00] VITALS: RESP 20
[2022-05-09 19:02] VITALS: BP 133/68; PULSE 96; TEMP 100
== END 2022-05-09 19:01 | disposition home or self-care (01) ==
LOC: EC 15:11
DX: J10.1 Influenza due to other identified influenza virus with other respiratory manifestations (principal); E11.9 Type 2 diabetes mellitus without complications; K21.9 Gastro-esophageal reflux disease without esophagitis; E78.5 Hyperlipidemia, unspecified; I10 Essential (primary) hypertension; E07.9 Disorder of thyroid, unspecified; Z20.822 Contact with and (suspected) exposure to COVID-19; Z88.5 Allergy status to narcotic agent; Z88.8 Allergy status to other drugs, medicaments and biological substances; Z79.899 Other long term (current) drug therapy
CPT/HCPCS: 71046; 87502; 87635; 99283

== ENCOUNTER 2022-05-28 03:09 | Emergency (ER) | payer BC, OTHER ==
[2022-05-28 03:21] VITALS: BP 130/65; PULSE 99; RESP 18; TEMP 98.6
[2022-05-28] MEDS ORDERED: DOXYCYCLINE 100 MG CAP PO STA (03:34)
--- NOTE | 2022-05-28 03:37 | ED ---
General Adult HPI - General Chief complaint: Recheck/Abnormal Lab/Rx Stated complaint: MRSA Time Seen by Provider: 05/28/22 03:28 Source: patient, RN notes reviewed Mode of arrival: ambulatory - History of Present Illness Initial comments: This is a pleasant 51-year-old female history of MRSA who presents with 2 spots that she is concerned might be the early start of MRSA. She has one area in her groin and one area on her right lower back. Patient states that she previously was treated with doxycycline and Bactrim for MRSA. Patient denying any fever. She denies any symptoms of systemic illness. No headache, no fever or chills, no changes in vision or hearing, no sore throat or difficulty with speech, no neck pain, no chest pain or shortness of breath, no abdominal pain, no nausea or vomiting, no changes in urination or bowel movements, no numbness or tingling, no extremity pain, no skin rashes or lesions. Past medical, surgical, social, and family history reviewed. - Related Data Home Medications Medication Instructions Recorded Confirmed Calcium Carbonate/Vitamin D3 1 each PO DAILY 02/13/16 04/01/18 [Calcium 600-Vit D3 200 Tablet] Gabapentin [Neurontin] 600 mg PO TID 02/13/16 04/01/18 Levothyroxine Sodium [Synthroid] 25 mcg PO DAILY 02/13/16 04/01/18 Multivitamins, Thera [Multivitamin] 1 tab PO DAILY 02/13/16 03/30/18 Simvastatin [Zocor] 40 mg PO HS 02/13/16 04/01/18 metFORMIN HCL [Glucophage] 1,000 mg PO DAILY 02/13/16 04/01/18 Citalopram Hydrobromide 10 mg PO DAILY 03/30/18 04/01/18 [Citalopram HBr] Fenofibrate 160 mg PO DAILY 03/30/18 04/01/18 L.acidoph,Paracasei, B.lactis 1 each PO DAILY 03/30/18 04/01/18 [Probiotic] Loratadine 10 mg PO DAILY 03/30/18 04/01/18 Losartan [Cozaar] 50 mg PO DAILY 03/30/18 04/01/18 Magnesium Oxide [Mag-Ox] 400 mg PO DAILY 03/30/18 04/01/18 Meloxicam 15 mg PO DAILY 03/30/18 04/01/18 Ranitidine HCl [Zantac] 150 mg PO DAILY 03/30/18 04/01/18 Previous Rx's Medication Instructions Recorded Cyclobenzaprine HCl 10 mg PO TID 7 Days #21 tab 07/08/21 predniSONE 50 mg PO DAILY #5 tab 07/08/21 Cephalexin [Keflex] 500 mg PO Q6HR 5 Days #20 cap 02/03/22 Sulfamethox-Tmp 800-160Mg [Bactrim 2 tab PO Q12HR #40 tab 02/03/22 DS 800-160 mg] Doxycycline [Vibramycin] 100 mg PO BID 1 Days #20 each 05/28/22 Allergies Allergy/AdvReac Type Severity Reaction Status Date / Time codeine AdvReac Nausea Verified 05/28/22 03:21 hydrocodone bitartrate AdvReac Nausea Verified 05/28/22 03:21 [From Vicodin] lisinopril AdvReac Cough Verified 05/28/22 03:21 tramadol HCl [From Ultram] AdvReac Nausea Verified 05/28/22 03:21 Review of Systems ROS Statement: Those systems with pertinent positive or pertinent negative responses have been documented in the HPI. ROS Other: All systems not noted in ROS Statement are negative. Past Medical History Past Medical History: Diabetes Mellitus, GERD/Reflux, Hyperlipidemia, Hypertension, Thyroid Disorder Additional Past Medical History / Comment(s): FREQUENT CONSTIPATION, RESTLESS LEG, SEASONAL ALLERGIES, History of Any Multi-Drug Resistant Organisms: MRSA Date of last positivie culture/infection: 02/03/22 MDRO Source:: Right Axilla Past Surgical History: Tubal Ligation Past Anesthesia/Blood Transfusion Reactions: No Reported Reaction Past Psychological History: Depression Smoking Status: Former smoker Past Alcohol Use History: Rare Past Drug Use History: None Reported - Past Family History Mother Family Medical History: No Reported History General Exam - General Exam Comments Initial Comments: Patient does not appear to be ill or toxic. General appearance: alert, in no apparent distress Head exam: Present: atraumatic, normocephalic, normal inspection Eye exam: Present: normal appearance, EOMI Neck exam: Present: normal inspection Respiratory exam: Present: normal lung sounds bilaterally. Absent: respiratory distress Cardiovascular Exam: Present: regular rate, normal rhythm, normal heart sounds. Absent: systolic murmur, diastolic murmur, rubs, gallop, clicks GI/Abdominal exam: Present: soft. Absent: tenderness Back exam: Present: full ROM Neurological exam: Present: alert, oriented X3, CN II-XII intact Psychiatric exam: Present: normal affect, normal mood Skin exam: Present: dry, erythema (Patient is an erythematous area to the right lower back which is consistent with a small abscess with secondary cellulitis. Entire area of erythema is 3 cm in diameter. There is no current drainage. Patient has a tiny, non-inflamed area in her left groin which maybe early abscess. No communicati). Absent: rash Course Vital Signs 05/28/22 03:17 Temperature 98.6 F Pulse Rate 99 Respiratory 18 Rate Blood Pressure 130/65 O2 Sat by Pulse 97 Oximetry Disposition Clinical Impression: Abscess of lower back Disposition: HOME SELF-CARE Condition: Good Instructions (If sedation given, give patient instructions): Abscess (ED) Additional Instructions: Take antibiotics as directed. Apply warm compresses for 10-15 minutes at a time at least 4 times daily. Follow-up with regular physician in 2 days. Follow-up with your regular physician as directed. Return to the ER immediately if any symptoms worsen, new symptoms arise, or any other problems develop. Prescriptions: Doxycycline [Vibramycin] 100 mg PO BID 1 Days #20 each Is patient prescribed a controlled substance at d/c from ED?: No Referrals: Woody Barbour DO [Primary Care Provider] - 1-2 days Time of Disposition: 03:36
== END 2022-05-28 03:52 | disposition home or self-care (01) ==
LOC: EC 03:09
DX: L02.212 Cutaneous abscess of back [any part, except buttock and flank] (principal); F32.A Depression, unspecified; E11.9 Type 2 diabetes mellitus without complications; E07.9 Disorder of thyroid, unspecified; E78.5 Hyperlipidemia, unspecified; Z87.891 Personal history of nicotine dependence; Z79.02 Long term (current) use of antithrombotics/antiplatelets; Z79.890 Hormone replacement therapy; Z79.899 Other long term (current) drug therapy; Z88.5 Allergy status to narcotic agent; Z88.8 Allergy status to other drugs, medicaments and biological substances
CPT/HCPCS: 99283

== ENCOUNTER 2023-09-07 08:15 | Emergency (ER) | payer BC, OTHER ==
[2023-09-07 08:34] VITALS: BP 172/97; PULSE 86; RESP 20; TEMP 97.7
[2023-09-07 08:47] LABS: Appearance,Urine Cloudy (Clear); Bacteria,Urine Occasional /hpf; Bilirubin,Urine Negative (Negative); Blood,Urine Small (Negative); Color,Urine Dark Yellow; Glucose,Urine (UA) Negative (Negative); Ketones,Urine Negative (Negative); Leukocyte Esterase,Urine Large (Negative); Mucus,Urine Occasional /hpf; Nitrite,Urine Positive (Negative); PH, Urine 6.5 (5.0-8.0); Protein,Urine 1+ (Negative); RBC,Urine 14 /hpf (0-5); Specific Gravity,Urine 1.017 (1.001-1.035); Squamous Epithelial Cell,Urine 12 /hpf (0-4); WBC,Urine >182 /hpf (0-5)
--- NOTE | 2023-09-07 08:57 | ED ---
Female Urogenital HPI - General Chief complaint: Urogenital Stated complaint: UTI Time Seen by Provider: 09/07/23 08:19 Source: patient, RN notes reviewed Mode of arrival: ambulatory Limitations: no limitations - History of Present Illness Initial comments: Is a 53-year-old female presents emergency department chief complaint of dysuria. Patient states she has had urinary symptoms for the last 6 days. She complains of low back achiness. Patient denies reports of fever she states pain is not unilateral. Patient states she has had urinary tract infections in the past and feels very similar. - Related Data Home Medications Medication Instructions Recorded Confirmed Calcium Carbonate/Vitamin D3 1 each PO DAILY 02/13/16 04/01/18 [Calcium 600-Vit D3 200 Tablet] Gabapentin [Neurontin] 600 mg PO TID 02/13/16 04/01/18 Levothyroxine Sodium [Synthroid] 25 mcg PO DAILY 02/13/16 04/01/18 Multivitamins, Thera [Multivitamin] 1 tab PO DAILY 02/13/16 03/30/18 Simvastatin [Zocor] 40 mg PO HS 02/13/16 04/01/18 metFORMIN HCL [Glucophage] 1,000 mg PO DAILY 02/13/16 04/01/18 Citalopram Hydrobromide 10 mg PO DAILY 03/30/18 04/01/18 [Citalopram HBr] Fenofibrate 160 mg PO DAILY 03/30/18 04/01/18 L.acidoph,Paracasei, B.lactis 1 each PO DAILY 03/30/18 04/01/18 [Probiotic] Loratadine 10 mg PO DAILY 03/30/18 04/01/18 Losartan [Cozaar] 50 mg PO DAILY 03/30/18 04/01/18 Magnesium Oxide [Mag-Ox] 400 mg PO DAILY 03/30/18 04/01/18 Meloxicam 15 mg PO DAILY 03/30/18 04/01/18 Ranitidine HCl [Zantac] 150 mg PO DAILY 03/30/18 04/01/18 Previous Rx's Medication Instructions Recorded Cyclobenzaprine HCl 10 mg PO TID 7 Days #21 tab 07/08/21 predniSONE 50 mg PO DAILY #5 tab 07/08/21 Cephalexin [Keflex] 500 mg PO Q6HR 5 Days #20 cap 02/03/22 Sulfamethox-Tmp 800-160Mg [Bactrim 2 tab PO Q12HR #40 tab 02/03/22 DS 800-160 mg] Doxycycline [Vibramycin] 100 mg PO BID 1 Days #20 each 05/28/22 Cephalexin [Keflex] 500 mg PO Q8HR #21 cap 09/07/23 Allergies Allergy/AdvReac Type Severity Reaction Status Date / Time codeine AdvReac Nausea Verified 09/07/23 08:26 hydrocodone bitartrate AdvReac Nausea Verified 09/07/23 08:26 [From Vicodin] lisinopril AdvReac Cough Verified 09/07/23 08:26 tramadol HCl [From Ultram] AdvReac Nausea Verified 09/07/23 08:26 Review of Systems ROS Statement: Those systems with pertinent positive or pertinent negative responses have been documented in the HPI. ROS Other: All systems not noted in ROS Statement are negative. Past Medical History Past Medical History: Diabetes Mellitus, GERD/Reflux, Hyperlipidemia, Hypertension, Thyroid Disorder Additional Past Medical History / Comment(s): FREQUENT CONSTIPATION, RESTLESS LEG, SEASONAL ALLERGIES, History of Any Multi-Drug Resistant Organisms: MRSA Date of last positivie culture/infection: 02/03/22 MDRO Source:: Right Axilla Past Surgical History: Tubal Ligation Past Anesthesia/Blood Transfusion Reactions: No Reported Reaction Past Psychological History: Depression Smoking Status: Former smoker Past Alcohol Use History: Rare Past Drug Use History: None Reported - Past Family History Mother Family Medical History: No Reported History General Exam Limitations: no limitations General appearance: alert, in no apparent distress Head exam: Present: atraumatic, normocephalic, normal inspection Eye exam: Present: normal appearance, PERRL, EOMI. Absent: scleral icterus, conjunctival injection, periorbital swelling Neck exam: Present: normal inspection. Absent: tenderness, meningismus, lymphadenopathy Respiratory exam: Present: normal lung sounds bilaterally. Absent: respiratory distress, wheezes, rales, rhonchi, stridor Cardiovascular Exam: Present: regular rate, normal rhythm, normal heart sounds. Absent: systolic murmur, diastolic murmur, rubs, gallop, clicks GI/Abdominal exam: Present: soft, normal bowel sounds. Absent: distended, tenderness, guarding, rebound, rigid Back exam: Present: tenderness. Absent: CVA tenderness (R), CVA tenderness (L) Course Vital Signs 09/07/23 08:24 Temperature 97.7 F Pulse Rate 86 Respiratory 20 Rate Blood Pressure 172/97 O2 Sat by Pulse 96 Oximetry Medical Decision Making - Medical Decision Making Was pt. sent in by a medical professional or institution (, LACHELLE, DIRECTOR OF FOOD AND NUTRITION SERVICES, urgent care, hospital, or intermediate...) When possible be specific @ -No Did you speak to anyone other than the patient for history (EMS, parent, family, police, friend...)? What history was obtained from this source @ -No Did you review nursing and triage notes (agree or disagree)? Why? @ -I reviewed and agree with nursing and triage notes Were old charts reviewed (outside hosp., previous admission, EMS record, old EKG, old radiological studies, urgent care reports/EKG's, intermediate records)? Report findings @ -No old charts were reviewed Differential Diagnosis (chest pain, altered mental status, abdominal pain women, abdominal pain men, vaginal bleeding, weakness, fever, dyspnea, syncope, headache, dizziness, GI bleed, back pain, seizure, CVA, palpatations, mental health, musculoskeletal)? @ -Differential Abdominal Pain Women: Appendicitis, Cholecystitis, diverticulosis, ischemic bowel, pancreatitis, hepatitis, UTI, gastroenteritis, AAA, incarcerated hernia, bowel obstruction, constipation, inflammatory bowel, hepatitis, peptic ulcer disease, splenic infarction, perforated viscus, vulvitis, ovarian torsion, PID, kidney stone, placenta abruption, this is not meant to be an all-inclusive list EKG interpreted by me (3pts min.). @ -None X-rays interpreted by me (1pt min.). @ -None done CT interpreted by me (1pt min.). @ -None done U/S interpreted by me (1pt. min.). @ -None done What testing was considered but not performed or refused? (CT, X-rays, U/S, labs)? Why? @ -None What meds were considered but not given or refused? Why? @ -None Did you discuss the management of the patient with other professionals (professionals i.e. LACHELLE Kuo, DIRECTOR OF FOOD AND NUTRITION SERVICES, lab, RT, psych nurse, child protective services social worker, drier tender naphthalene, teacher, sustainability officer, catalytic case operator)? Give summary @ -No Was smoking cessation discussed for >3mins.? @ -No Was critical care preformed (if so, how long)? @ -No Were there social determinants of health that impacted care today? How? (Homelessness, low income, unemployed, alcoholism, drug addiction, transportation, low edu. Level, literacy, decrease access to med. care, prison, rehab)? @ -No Was there de-escalation of care discussed even if they declined (Discuss DNR or withdrawal of care, Hospice)? DNR status @ -No What co-morbidities impacted this encounter? (DM, HTN, Smoking, COPD, CAD, Cancer, CVA, ARF, Chemo, Hep., AIDS, mental health diagnosis, sleep apnea, morbid obesity)? @ -None Was patient admitted / discharged? Hospital course, mention meds given and route, prescriptions, significant lab abnormalities, going to OR and other pertinent info. @ -[Discharge patient has evidence of urinary tract infection. Patient was given Rocephin 1 g IM patient discharged on Keflex urine culture was added. Patient and parents were discussed. Undiagnosed new problem with uncertain prognosis? @ -No Drug Therapy requiring intensive monitoring for toxicity (Heparin, Nitro, Insulin, Cardizem)? @ -No Were any procedures done? @ -No Diagnosis/symptom? @ -UTI Acute, or Chronic, or Acute on Chronic? @ -Acute Uncomplicated (without systemic symptoms) or Complicated (systemic symptoms)? @ -Uncomplicated Side effects of treatment? @ -No Exacerbation, Progression, or Severe Exacerbation? @ -No Poses a threat to life or bodily function? How? (Chest pain, [place], [place], pneumonia, PE, COPD, DKA, ARF, appy, cholecystitis, CVA, Diverticulitis, Homicidal, Suicidal, threat to staff... and all critical care pts) @ -No - Lab Data Lab Results 09/07/23 Range/Units 08:30 Urine Color Dark Yellow Urine Appearance Cloudy H (Clear) Urine pH 6.5 (5.0-8.0) Ur Specific [place] 1.017 (1.001-1.035) Urine Protein 1+ H (Negative) Urine Glucose (UA) Negative (Negative) Urine Ketones Negative (Negative) Urine Blood Small H (Negative) Urine Nitrite Positive H (Negative) Urine Bilirubin Negative (Negative) Urine Urobilinogen 2.0 (<2.0) mg/dL Ur Leukocyte Esterase Large H (Negative) Urine RBC 14 H (0-5) /hpf Urine WBC >182 H (0-5) /hpf Urine WBC Clumps Few H (None) /hpf Ur Squamous Epith Cells 12 H (0-4) /hpf Urine Bacteria Occasional H (None) /hpf Urine Mucus Occasional H (None) /hpf Disposition Clinical Impression: Urinary tract infection Disposition: HOME SELF-CARE Condition: Stable Instructions (If sedation given, give patient instructions): Urinary Tract Infection in Women (ED) Additional Instructions: Please return to the Emergency Department if symptoms worsen or any other concerns. Prescriptions: Cephalexin [Keflex] 500 mg PO Q8HR #21 cap Is patient prescribed a controlled substance at d/c from ED?: No Referrals: Woody Barbour DO [Primary Care Provider] - 1-2 days Time of Disposition: 08:57
[2023-09-07] MEDS: cefTRIAXone 1,000 MG VIAL (IM USE) IM STA (09:07)
== END 2023-09-07 09:10 | disposition home or self-care (01) ==
LOC: EC 08:15
DX: N39.0 Urinary tract infection, site not specified (principal); E11.9 Type 2 diabetes mellitus without complications; I10 Essential (primary) hypertension; E07.9 Disorder of thyroid, unspecified; E78.5 Hyperlipidemia, unspecified; F32.A Depression, unspecified; Z87.891 Personal history of nicotine dependence; Z88.5 Allergy status to narcotic agent; Z88.6 Allergy status to analgesic agent; Z88.8 Allergy status to other drugs, medicaments and biological substances; Z79.84 Long term (current) use of oral hypoglycemic drugs; Z79.890 Hormone replacement therapy; Z79.899 Other long term (current) drug therapy
CPT/HCPCS: 99283; 96372; 81001; 87086; J0696

== ENCOUNTER → 2024-12-07 | Outpatient (CLI) | payer BC, OTHER ==
--- NOTE | 2024-12-07 08:43 | MM ---
Reason for Exam: Screening (asymptomatic). Last mammogram was performed 2 year(s) and 8 month(s) ago. Patient History: Menarche at age 11. First Full-Term at age 21. Paternal aunt had breast cancer, age 67. Risk Values: Marisol 5 year model risk: 1.1%. NCI Lifetime model risk: 8.2%. Prior Study Comparison: 04/30/2019 Bilateral Screening Mammogram, [facility]. 02/27/2021 Bilateral Screening Mammogram, [facility]. 04/16/2022 Bilateral MG 3D screening mammo w/cad, [facility]. Tissue Density: There are scattered areas of fibroglandular density. Findings: Analyzed By CAD. There is no suspicious group of microcalcifications or new suspicious mass in either breast. Overall Assessment: Negative, BI-RAD 1 Management: Screening Mammogram of both breasts in 1 year. . Patient should continue monthly self-breast exams. A clinical breast exam by your physician is recommended on an annual basis. This exam should not preclude additional follow-up of suspicious palpable abnormalities. Note on Marisol scores and lifetime risk: 1. A Marisol score greater than 3% is considered moderate risk. If this is the case, consider specialist referral to assess eligibility for a risk reducing agent. 2. If overall lifetime risk for the development of breast cancer is 20% or higher, the patient may qualify for future screening with alternating mammogram and breast MRI. [facility], , 12/07/2024 8:40 AM. Electronically signed and approved by: Marcos Winters M.D.
== END | disposition home or self-care (01) ==
LOC: RADMAMWWP 07:46
PROVIDERS: ATTEND Family Medicine
DX: Z12.31 Encounter for screening mammogram for malignant neoplasm of breast (principal); R92.323 Mammographic fibroglandular density, bilateral breasts; Z80.3 Family history of malignant neoplasm of breast
CPT/HCPCS: 77063; 77067

== ENCOUNTER → 2024-12-22 | Outpatient (CLI) | payer BC ==
--- NOTE | 2024-12-22 12:22 | CA ---
Transthoracic Echo Report Name: Karen Chadwick Age: 54 Gender: F : 1970 Exam Date: 12/22/2024 11:39 Exam Location: [facility] Ht (in): 66 Wt (lb): 295 Ordering Physician: Woody Barbour DO Attending/Referring Phys: Cook Supervisor Charley Gross RDCS Procedure CPT: Indications: I34.0 NONRHEUMATIC MITRAL INSUFF Cardiac Hx: Technical Quality: Fair Contrast 1: Total Dose (mL): Contrast 2: Total Dose (mL): MEASUREMENTS (Male / Female) Normal Values 2D ECHO LV Diastolic Diameter PLAX 4.5 cm 4.2 - 5.9 / 3.9 - 5.3 cm LV Systolic Diameter PLAX 2.7 cm IVS Diastolic Thickness 1.1 cm 0.6 - 1.0 / 0.6 - 0.9 cm LVPW Diastolic Thickness 1.2 cm 0.6 - 1.0 / 0.6 - 0.9 cm LV Relative Wall Thickness 0.5 RV Internal Dim ED PLAX 2.5 cm LVOT Diameter 1.7 cm LA Systolic Diameter LX 4.0 cm 3.0 - 4.0 / 2.7 - 3.8 cm LV Diastolic Volume MOD BP 50.4 cm??? 67 - 155 / 56 - 104 cm??? LV Systolic Volume MOD BP 23.3 cm??? 22 - 58 / 19 - 49 cm??? LV Ejection Fraction MOD BP 53.8 % >= 55 % LV Cardiac Index MOD BP 874.4 cm???/min???m??? LV Diastolic Volume MOD 4C 63.9 cm??? LV Systolic Volume MOD 4C 23.9 cm??? LV Ejection Fraction MOD 4C 62.6 % LV Cardiac Index MOD 4C 1290.2 cm???/min???m??? LV Diastolic Length 4C 6.5 cm LV Systolic Length 4C 5.5 cm LV Diastolic Volume MOD 2C 36.4 cm??? LV Systolic Volume MOD 2C 20.8 cm??? LV Ejection Fraction MOD 2C 42.9 % LV Cardiac Index MOD 2C 503.1 cm???/min???m??? LV Diastolic Length 2C 5.9 cm LV Systolic Length 2C 4.9 cm LA Volume 58.4 cm??? 18 - 58 / 22 - 52 cm??? LA Volume Index 22.7 cm???/m??? 16 - 28 cm???/m??? M-MODE Aortic Root Diameter MM 2.6 cm LA Systolic Diameter MM 3.7 cm LA Ao Ratio MM 1.4 AV Cusp Separation MM 1.8 cm DOPPLER MV Area PHT 3.4 cm??? Mitral E Point Velocity 71.4 cm/s Mitral A Point Velocity 64.9 cm/s Mitral E to A Ratio 1.1 MV Deceleration Time 223.5 ms TR Peak Velocity 252.0 cm/s TR Peak Gradient 25.4 mmHg FINDINGS Left Ventricle Left ventricular ejection fraction is estimated at 60 %. Mildly increased septal wall thickness. Mildly increased posterior wall thickness. Normal left ventricular systolic function with no obvious regional wall motion abnormalities. Right Ventricle Mild right ventricular dilatation. Right ventricular systolic pressure within normal limits. Right Atrium Normal right atrial size. Left Atrium Mildly increased left atrial diameter. Mildly increased left atrial volume. Mitral Valve Structurally normal mitral valve. Mild mitral regurgitation. No mitral stenosis. Aortic Valve Trileaflet aortic valve. No aortic valve stenosis or regurgitation. Tricuspid Valve Structurally normal tricuspid valve. Mild tricuspid regurgitation. No tricuspid stenosis. Pulmonic Valve Structurally normal pulmonic valve. No pulmonic stenosis. Trace pulmonic regurgitation. Pericardium No pericardial or pleural effusion. Aorta Normal size aortic root and proximal ascending aorta. CONCLUSIONS Normal LV size and systolic function. Mild mitral and tricuspid regurgitation. No pericardial effusion. Probable fat pad. Normal PA pressure Previewed by: Dr. Angi Mendez MD (Electronically Signed) Final Date: 22 December 2024 12:21
== END | disposition home or self-care (01) ==
LOC: RADECHMAIN 11:28
PROVIDERS: ATTEND Family Medicine
DX: I08.1 Rheumatic disorders of both mitral and tricuspid valves (principal)
CPT/HCPCS: 93306